=== PATIENT | male | born 1985 | race Caucasian/White ===

== ENCOUNTER 2022-12-27 16:41 | Emergency (ER) | payer SELFPAY ==
[~2022-12-27] VITALS: Ht 185.4 cm; Wt 147.0 kg
[2022-12-27] MEDS ORDERED: NAPROSYN500 MG PO (17:52)
[2022-12-27] MEDS ORDERED: DOXYCYCLINE HY100 MG PO (17:52)
[2022-12-27] MEDS ORDERED: DOXYCYCLINE HYCLATE TABLET 100 MG TAB PO ONE (18:00)
[2022-12-27] MEDS ORDERED: TRAMADOL HCL 50 MG TAB PO ONE (18:00)
== END 2022-12-27 18:39 | disposition home or self-care (01) ==
LOC: ER 17:45
DX: L03.012 Cellulitis of left finger (principal); I10 Essential (primary) hypertension; F90.9 Attention-deficit hyperactivity disorder, unspecified type
CPT/HCPCS: 99283